=== PATIENT | female | born 1970 | race African-American/Black ===

== ENCOUNTER 2023-07-04 16:43 | Inpatient (IN) | payer MEDICAID, OTHER ==
[~2023-07-04] VITALS: Ht 157.5 cm; Wt 94.8 kg
[2023-07-04 16:51] VITALS: BP 107/62; PULSE 77; RESP 16; TEMP 96.8; O2SAT 97
[2023-07-04 17:48] LABS: BASOPHILS % (AUTO) 0.6 % (0.0-2.0); EOSINOPHILS # (AUTO) 0.2 K/uL (0-0.4); EOSINOPHILS % (AUTO) 3.4 % (0.0-4.0); HEMATOCRIT 38.3 % (36-48); HEMOGLOBIN 13.1 g/dL (12.0-16.0); LYMPHOCYTES # (AUTO) 1.3 K/uL (2.5-16.5); LYMPHOCYTES % (AUTO) 26.7 % (20.5-51.1); MEAN CORPUSCULAR HEMOGLOBIN 32 pg (27-31); MEAN CORPUSCULAR HGB CONC 34 g/dL (33-37); MONOCYTES # (AUTO) 0.3 K/uL (0.8-1.0); MONOCYTES % (AUTO) 5.9 % (1.7-9.3); NEUTROPHILS # (AUTO) 3.1 K/uL (1.8-7.7); NEUTROPHILS % (AUTO) 63.4 % (42.2-75.2); PLATELET COUNT (AUTO) 145 K/uL (140-450); RED BLOOD CELL COUNT(AUTO) 4.12 MIL/uL (4.20-5.40); RED CELL DISTRIBUTION WIDTH 13.2 % (11.6-13.7); WHITE BLOOD COUNT (AUTO) 4.9 K/uL (4.8-10.8)
[2023-07-04 18:04] LABS: ANION GAP 15.8 (8-16); CALCIUM 9.9 mg/dL (8.5-10.1); CARBON DIOXIDE 28.7 mmol/L (21-32); CREATININE 0.9 mg/dL (0.6-1.3); POTASSIUM 3.5 mmol/L (3.5-5.1)
[2023-07-04 18:51] LABS: ALANINE AMINOTRANSFERASE 257 U/L (12-78); LIPASE 33 U/L (16-77)
[2023-07-04 18:55] LABS: ALBUMIN 4.3 g/dL (3.4-5.0); ALKALINE PHOSPHATASE 226 U/L (50-136); ASPARTATE AMINOTRANSFERASE 79 U/L (15-37); BILIRUBIN,DIRECT 0.1 mg/dL (0.0-0.3); TOTAL BILIRUBIN 0.3 mg/dL (0.0-1.0); TOTAL PROTEIN, SERUM 8.4 g/dL (6.4-8.2)
[2023-07-04 18:56] LABS: CREATINE KINASE, TOTAL 76 U/L (26-192); THYROID STIMULATING HORMONE 1.99 uIU/mL (0.34-3.74)
[2023-07-04 19:03] LABS: LACTIC ACID 0.9 mmol/L (0.4-2.0)
[2023-07-04 19:09] LABS: APPEARANCE,URINE SL CLOUDY (CLEAR); BILIRUBIN,URINE NEGATIVE (NEGATIVE); BLOOD, URINE 2+ (NEGATIVE); COLOR,URINE YELLOW (YELLOW); LEUKOCYTE ESTERASE ,URINE 3+ (NEGATIVE); NITRITE, URINE POSITIVE (NEGATIVE); PROTEIN,URINE TRACE (NEGATIVE); UGLUCOSE NEGATIVE (NEGATIVE); UROBILINOGEN,URINE 0.2 EU/dL (0.2 - 1)
[2023-07-04 19:15] LABS: BACTERIA,URINE 2+ /HPF (None Seen); MUCUS,URINE None Seen /LPF (None Seen); SQUAMOUS EPITHELIAL CELL,UR 4-10 (MOD) /LPF (0-3 (FEW))
[2023-07-04] MEDS ORDERED: CIPROFLOXACIN 400 MG/200ML-D5W 200 ML IV ONE (19:30)
[2023-07-04] MEDS ORDERED: NACL 0.9% 1,000 ML IV ONE (19:35)
[2023-07-04] MEDS ORDERED: ACETAMINOPHEN 325 MG TAB PO PRN (20:30)
[2023-07-04] MEDS ORDERED: KCL 20 MEQ IN 100 mL PREMIX 200 ML IV PRN (20:30)
[2023-07-04] MEDS ORDERED: LORazepam 1 MG TAB PO PRN (20:30)
[2023-07-04] MEDS ORDERED: MORPHINE SULFATE 4 MG/ML SYR IVP PRN (20:30)
[2023-07-04] MEDS ORDERED: MAG SULF 2000 MG/WATER PREMIX 50 ML IV PRN (20:30)
[2023-07-04] MEDS ORDERED: HYDROcodone/APAP 5/325 MG 1 TAB TAB PO PRN (20:30)
[2023-07-04] MEDS ORDERED: ONDANSETRON 4 MG/2 ML VIAL IVP PRN (20:30)
[2023-07-04] MEDS: NACL 0.9% 1,000 ML IV SCH (20:30)
[2023-07-04] MEDS ORDERED: POTASSIUM CHLORIDE 10 MEQ TABER PO PRN (20:30)
[2023-07-04] MEDS: LEVOFLOXACIN 500 MG/D5W PREMIX 100 ML IV SCH (22:28)
[2023-07-04 23:22] LABS: PARTIAL THROMBOPLASTIN TIME 27.1 secs (22-35.6); PROTHROMBIN TIME 10.5 secs (10.8-13.4)
[2023-07-05] MEDS ORDERED: BENZ1TAB24 PO (05:46)
[2023-07-05] MEDS ORDERED: FERR-13 PO (05:46)
[2023-07-05] MEDS ORDERED: OMEP20TC PO (05:46)
[2023-07-05] MEDS ORDERED: LORA-475 PO (05:46)
[2023-07-05] MEDS ORDERED: LORA10TA19 PO (05:46)
[2023-07-05] MEDS ORDERED: MULT-465 PO (05:46)
[2023-07-05] MEDS ORDERED: POLY17PO PO (05:46)
[2023-07-05] MEDS ORDERED: CRAN450T5 PO (05:46)
[2023-07-05] MEDS ORDERED: FAMO-368 PO (05:46)
[2023-07-05] MEDS ORDERED: [UNRECOGNIZED DRUG - CODE] PO (05:46)
[2023-07-05] MEDS ORDERED: GEMF-66 PO (05:46)
[2023-07-05] MEDS ORDERED: FLUO60TA PO (05:46)
[2023-07-05 06:41] LABS: BASOPHILS % (AUTO) 0.5 % (0.0-2.0); EOSINOPHILS # (AUTO) 0.2 K/uL (0-0.4); EOSINOPHILS % (AUTO) 3.5 % (0.0-4.0); HEMATOCRIT 33.9 % (36-48); HEMOGLOBIN 11.6 g/dL (12.0-16.0); LYMPHOCYTES # (AUTO) 1.1 K/uL (2.5-16.5); LYMPHOCYTES % (AUTO) 23.1 % (20.5-51.1); MEAN CORPUSCULAR HEMOGLOBIN 32 pg (27-31); MEAN CORPUSCULAR HGB CONC 34 g/dL (33-37); MEAN CORPUSCULAR VOLUME 92.7 fL (80-94); MONOCYTES # (AUTO) 0.4 K/uL (0.8-1.0); MONOCYTES % (AUTO) 8.2 % (1.7-9.3); NEUTROPHILS # (AUTO) 2.9 K/uL (1.8-7.7); NEUTROPHILS % (AUTO) 64.7 % (42.2-75.2); PLATELET COUNT (AUTO) 130 K/uL (140-450); RED BLOOD CELL COUNT(AUTO) 3.66 MIL/uL (4.20-5.40); RED CELL DISTRIBUTION WIDTH 13.1 % (11.6-13.7); WHITE BLOOD COUNT (AUTO) 4.6 K/uL (4.8-10.8)
[2023-07-05 07:52] LABS: ANION GAP 18.7 (8-16); CALCIUM 9.5 mg/dL (8.5-10.1); CARBON DIOXIDE 24.5 mmol/L (21-32); CREATININE 0.7 mg/dL (0.6-1.3); POTASSIUM 4.2 mmol/L (3.5-5.1)
[2023-07-05 08:00] VITALS: BP 94/64; PULSE 64; RESP 17; TEMP 97.7; O2SAT 98
[2023-07-05 09:00] VITALS: PULSE 64; RESP 17; O2SAT 98
[2023-07-05] MEDS: NACL 0.9% 1,000 ML IV SCH ×2 (09:47→21:30)
[2023-07-05 16:00] VITALS: BP 105/69; PULSE 75; RESP 18; TEMP 97.2; O2SAT 99
[2023-07-05 20:00] VITALS: BP 98/66; PULSE 64; PULSE 67; RESP 17; RESP 21; TEMP 96.9; O2SAT 100; O2SAT 98
[2023-07-05] MEDS: ZOLPIDEM 5 MG TAB PO PRN (21:32)
[2023-07-05] MEDS: LEVOFLOXACIN 500 MG/D5W PREMIX 100 ML IV SCH (21:32)
[2023-07-06 04:00] VITALS: BP 117/65; PULSE 62; RESP 18; TEMP 96.9; O2SAT 98
[2023-07-06 07:01] LABS: BASOPHILS % (AUTO) 0.4 % (0.0-2.0); EOSINOPHILS # (AUTO) 0.2 K/uL (0-0.4); EOSINOPHILS % (AUTO) 4.2 % (0.0-4.0); HEMATOCRIT 32.5 % (36-48); HEMOGLOBIN 11.2 g/dL (12.0-16.0); LYMPHOCYTES % (AUTO) 22.6 % (20.5-51.1); MEAN CORPUSCULAR HEMOGLOBIN 32 pg (27-31); MEAN CORPUSCULAR HGB CONC 34 g/dL (33-37); MEAN CORPUSCULAR VOLUME 92.6 fL (80-94); MONOCYTES # (AUTO) 0.3 K/uL (0.8-1.0); MONOCYTES % (AUTO) 7.4 % (1.7-9.3); NEUTROPHILS # (AUTO) 2.9 K/uL (1.8-7.7); NEUTROPHILS % (AUTO) 65.4 % (42.2-75.2); PLATELET COUNT (AUTO) 124 K/uL (140-450); RED CELL DISTRIBUTION WIDTH 12.8 % (11.6-13.7); WHITE BLOOD COUNT (AUTO) 4.4 K/uL (4.8-10.8)
[2023-07-06 07:13] LABS: ANION GAP 10.9 (8-16); CALCIUM 8.8 mg/dL (8.5-10.1); CARBON DIOXIDE 26.7 mmol/L (21-32); CREATININE 0.6 mg/dL (0.6-1.3); POTASSIUM 3.6 mmol/L (3.5-5.1)
[2023-07-06 08:00] VITALS: BP 97/53; PULSE 64; PULSE 75; RESP 16; RESP 18; TEMP 97.6; O2SAT 97
[2023-07-06] MEDS: NACL 0.9% 1,000 ML IV SCH (10:00)
[2023-07-06 16:00] VITALS: BP 116/62; PULSE 74; RESP 18; TEMP 97.2; O2SAT 98
[2023-07-06 20:00] VITALS: PULSE 80; RESP 17; O2SAT 100
[2023-07-06] MEDS: levoFLOXacin 500 MG TAB PO SCH (21:07)
[2023-07-06] MEDS: ZOLPIDEM 5 MG TAB PO PRN (21:07)
[2023-07-07] VITALS: BP 128/69; PULSE 80; RESP 17; TEMP 97.2; O2SAT 100
[2023-07-07 06:53] LABS: ANION GAP 11.1 (8-16); CARBON DIOXIDE 27.8 mmol/L (21-32); CREATININE 0.7 mg/dL (0.6-1.3); POTASSIUM 3.9 mmol/L (3.5-5.1)
[2023-07-07 08:00] VITALS: BP 111/55; PULSE 74; PULSE 75; RESP 16; RESP 18; TEMP 96.9; O2SAT 97
[2023-07-07 08:11] LABS: BASOPHILS % (AUTO) 0.7 % (0.0-2.0); EOSINOPHILS # (AUTO) 0.2 K/uL (0-0.4); EOSINOPHILS % (AUTO) 3.5 % (0.0-4.0); HEMATOCRIT 33.6 % (36-48); HEMOGLOBIN 11.5 g/dL (12.0-16.0); LYMPHOCYTES # (AUTO) 1.3 K/uL (2.5-16.5); LYMPHOCYTES % (AUTO) 26.2 % (20.5-51.1); MEAN CORPUSCULAR HEMOGLOBIN 32 pg (27-31); MEAN CORPUSCULAR HGB CONC 34 g/dL (33-37); MEAN CORPUSCULAR VOLUME 92.5 fL (80-94); MONOCYTES # (AUTO) 0.4 K/uL (0.8-1.0); NEUTROPHILS # (AUTO) 3.2 K/uL (1.8-7.7); NEUTROPHILS % (AUTO) 62.6 % (42.2-75.2); PLATELET COUNT (AUTO) 142 K/uL (140-450); RED BLOOD CELL COUNT(AUTO) 3.63 MIL/uL (4.20-5.40); WHITE BLOOD COUNT (AUTO) 5.1 K/uL (4.8-10.8)
[2023-07-07] MEDS ORDERED: CIPR500T4 PO (14:37)
[2023-07-07 16:00] VITALS: BP 99/54; PULSE 85; RESP 18; TEMP 96.2; O2SAT 97
[2023-07-07 20:00] VITALS: PULSE 70; RESP 18; O2SAT 95
[2023-07-07] MEDS: levoFLOXacin 500 MG TAB PO SCH (23:14)
[2023-07-08] VITALS: BP 100/58; PULSE 60; RESP 18; TEMP 98.3; O2SAT 95
[2023-07-08 06:42] LABS: BASOPHILS % (AUTO) 0.6 % (0.0-2.0); EOSINOPHILS # (AUTO) 0.2 K/uL (0-0.4); EOSINOPHILS % (AUTO) 2.9 % (0.0-4.0); HEMATOCRIT 33.5 % (36-48); HEMOGLOBIN 11.5 g/dL (12.0-16.0); LYMPHOCYTES # (AUTO) 1.7 K/uL (2.5-16.5); LYMPHOCYTES % (AUTO) 28.7 % (20.5-51.1); MEAN CORPUSCULAR HEMOGLOBIN 32 pg (27-31); MEAN CORPUSCULAR HGB CONC 35 g/dL (33-37); MEAN CORPUSCULAR VOLUME 91.9 fL (80-94); MONOCYTES # (AUTO) 0.4 K/uL (0.8-1.0); NEUTROPHILS # (AUTO) 3.7 K/uL (1.8-7.7); NEUTROPHILS % (AUTO) 61.8 % (42.2-75.2); PLATELET COUNT (AUTO) 141 K/uL (140-450); RED BLOOD CELL COUNT(AUTO) 3.64 MIL/uL (4.20-5.40); RED CELL DISTRIBUTION WIDTH 12.9 % (11.6-13.7); WHITE BLOOD COUNT (AUTO) 6.1 K/uL (4.8-10.8)
[2023-07-08 06:52] LABS: ANION GAP 12.7 (8-16); CARBON DIOXIDE 25.2 mmol/L (21-32); CREATININE 0.8 mg/dL (0.6-1.3); POTASSIUM 3.9 mmol/L (3.5-5.1)
[2023-07-08 08:00] VITALS: BP 125/62; PULSE 82; RESP 18; TEMP 97.8; O2SAT 97
== END 2023-07-08 14:55 | disposition home or self-care (01) | DRG 463 ==
LOC: MED 16:43 → OBSVTOIN 20:32 → MTU 20:32
PROVIDERS: ADMIT Hospitalist; ATTEND Hospitalist
DX: N30.01 Acute cystitis with hematuria (principal); G82.50 Quadriplegia, unspecified; F79 Unspecified intellectual disabilities; K59.00 Constipation, unspecified; K31.84 Gastroparesis; K29.70 Gastritis, unspecified, without bleeding; Z79.899 Other long term (current) drug therapy; Z88.0 Allergy status to penicillin; Z88.1 Allergy status to other antibiotic agents
CPT/HCPCS: 36415; 71045; 74018; 80048; 80076; 81001; 82550; 82553; 83605; 83690; 83880; 84439; 84443; 84484; 85025; 85610; 85730; 87040; 87081; 87086; 93005; J0744; J1644; J1956

== ENCOUNTER 2024-03-24 19:25 | Emergency (ER) | payer OTHER ==
[~2024-03-24] VITALS: Ht 172.7 cm; Wt 90.7 kg
[~2024-03-24 19:25] MED LIST: BENZ1TAB24 PO; CIPR500T4 PO; CRAN450T5 PO; FAMO-368 PO; FERR-13 PO; FLUO60TA PO; GEMF-66 PO; LORA-475 PO; LORA10TA19 PO; MULT-465 PO; OMEP20TC PO; POLY17PO PO; [UNRECOGNIZED DRUG - CODE] PO
[2024-03-24 19:46] VITALS: BP 145/86; PULSE 86; RESP 20; TEMP 98; O2SAT 99
[2024-03-24 21:17] LABS: BASOPHILS % (AUTO) 0.6 % (0.0-2.0); EOSINOPHILS # (AUTO) 0.1 K/uL (0-0.4); EOSINOPHILS % (AUTO) 2.2 % (0.0-4.0); HEMATOCRIT 37.8 % (36-48); HEMOGLOBIN 12.9 g/dL (12.0-16.0); LYMPHOCYTES # (AUTO) 1.4 K/uL (2.5-16.5); LYMPHOCYTES % (AUTO) 24.7 % (20.5-51.1); MEAN CORPUSCULAR HEMOGLOBIN 32 pg (27-31); MEAN CORPUSCULAR HGB CONC 34 g/dL (33-37); MEAN CORPUSCULAR VOLUME 92.2 fL (80-94); MONOCYTES # (AUTO) 0.4 K/uL (0.8-1.0); MONOCYTES % (AUTO) 7.7 % (1.7-9.3); NEUTROPHILS # (AUTO) 3.7 K/uL (1.8-7.7); NEUTROPHILS % (AUTO) 64.8 % (42.2-75.2); PLATELET COUNT (AUTO) 187 K/uL (140-450); WHITE BLOOD COUNT (AUTO) 5.7 K/uL (4.8-10.8)
[2024-03-24 21:32] LABS: ANION GAP 8.8 (8-16); CALCIUM 9.2 mg/dL (8.5-10.1); CARBON DIOXIDE 29.7 mmol/L (21-32); CREATININE 0.5 mg/dL (0.6-1.3); POTASSIUM 3.5 mmol/L (3.5-5.1)
[2024-03-24] MEDS ORDERED: IBUP-2213 PO (21:45)
[2024-03-24] MEDS ORDERED: BENZ9GEL3 MM (21:45)
[2024-03-24] MEDS: BENZOCAINE 20% 57 GM CAN MC ONE (21:50)
[2024-03-24] MEDS: IBUPROFEN 600 MG TAB PO ONE (21:50)
[2024-03-24 23:30] VITALS: BP 145/86; PULSE 86; RESP 20; TEMP 98; O2SAT 99
== END 2024-03-24 23:28 | disposition home or self-care (01) ==
LOC: MED 19:25
DX: K12.0 Recurrent oral aphthae (principal); R03.0 Elevated blood-pressure reading, without diagnosis of hypertension; Z79.899 Other long term (current) drug therapy; Z88.1 Allergy status to other antibiotic agents; Z88.0 Allergy status to penicillin
CPT/HCPCS: 36415; 80048; 85025; 93005; 99284